=== PATIENT | female | born 1970 ===

== ENCOUNTER 2021-01-01 09:04 | Day surgery (SDC) | payer OTHER ==
[~2021-01-01 09:04] MED LIST: ATORVASTATIN CA10 MG PO; SIMVASTA PO
== END 2021-01-01 19:07 | disposition home or self-care (01) ==
LOC: CIR.AMB 09:04
PROVIDERS: ATTEND Colon & Rectal Surgery
DX: K62.0 Anal polyp (principal); K64.8 Other hemorrhoids; K64.4 Residual hemorrhoidal skin tags; Z20.822 Contact with and (suspected) exposure to COVID-19

== ENCOUNTER 2021-08-20 06:25 | Day surgery (SDC) | payer OTHER | END 2021-08-20 14:05 | disposition home or self-care (01) | LOC: CIR.AMB 06:25 | PROVIDERS: ATTEND Colon & Rectal Surgery | DX: D12.9 Benign neoplasm of anus and anal canal (principal); K60.3 Anal fistula; Z20.822 Contact with and (suspected) exposure to COVID-19 ==

== ENCOUNTER 2022-01-07 06:35 | Day surgery (SDC) | payer OTHER ==
[~2022-01-07] VITALS: Ht 177.8 cm; Wt 83.9 kg
[~2022-01-07 06:35] MED LIST changes: +MULTI-VITAMIN1 EACH PO
== END 2022-01-07 15:50 | disposition home or self-care (01) ==
LOC: CIR.AMB 06:35
PROVIDERS: ATTEND Colon & Rectal Surgery
DX: K60.5 Anorectal fistula (principal); K64.2 Third degree hemorrhoids; Z20.822 Contact with and (suspected) exposure to COVID-19